=== PATIENT | male | born 1985 | race Caucasian/White ===

== ENCOUNTER 2024-09-11 20:28 | Emergency (ER) | payer OTHER, SELFPAY ==
[2024-09-11 20:59] VITALS: BP 127/77; PULSE 81; RESP 18; TEMP 36.6; O2SAT 98; BMI 24.3
--- NOTE | 2024-09-11 21:10 | DI.RAD.S_ITS ---
PROCEDURE: XR ANKLE LT MIN 3V INDICATIONS: deformity, fell TECHNIQUE: 3 views of the ankle were acquired. COMPARISON: None. FINDINGS: Bones: No acute fractures or dislocations. Ankle mortise is normally aligned. No suspicious bony lesions. Soft tissues: No tibiotalar joint effusion. Achilles tendon appears normal. Lateral malleolar soft tissue edema. IMPRESSION: Lateral malleolar soft tissue swelling without underlying fracture or dislocation. If there is persistent clinical concern for occult fracture given adequate mechanism of injury, consider repeat imaging in 10-14 days. Dictated by: Jf Juarez M.D. on 09/11/2024 at 23:23 Approved by: Jf Juarez M.D. on 09/11/2024 at 23:24
[2024-09-12 00:48] VITALS: PULSE 72
[2024-09-12 01:02] VITALS: BP 112/70; PULSE 80; RESP 16; O2SAT 98
--- NOTE | 2024-09-12 01:26 | ED.LOWEXIN ---
HPI - Extremity Injury (Lower) General Chief Complaint: Extremity Injury, Lower Stated Complaint: Fall; L Leg Injury Time Seen by Provider: 09/12/24 01:01 Source: patient Mode of arrival: Wheelchair History of Present Illness HPI Narrative: 39-year-old gentleman running, stepped into a hole with his left foot and heard a pop. Tingling to the foot. Unable to bear weight. Neurovascularly intact. Related Data Allergies Allergy/AdvReac Type Severity Reaction Status Date / Time cough suppressant Allergy Severe Anxiety Uncoded 09/11/24 21:02 Patient History Social History Smoking Status: Never smoker Smoking Status: Never smoker Exam Initial Vital Signs Initial Vital Signs: Vital Signs Temperature 97.9 F 09/11/24 20:59 Pulse Rate 81 09/11/24 20:59 Respiratory Rate 18 09/11/24 20:59 Blood Pressure 127/77 09/11/24 20:59 Pulse Oximetry 98 09/11/24 20:59 Oxygen Delivery Method Room Air 09/11/24 20:59 General: Alert appropriate in no acute distress Respiratory: Able to speak in full sentences, no obvious respiratory distress Skin: No obvious rashes, warm and dry Neurologic: Grossly intact no obvious asymmetries or abnormalities Psych: appropriate insight and affect, cooperative Extremity: Left ankle swelling laterally with no obvious hematoma. Neurovascularly intact. No injury to the knee Course Orders Ordered: ED Orders 09/11/24 21:10 XR ankle LT min 3V Stat Vital Signs Vital signs: Vital Signs - 8 hr 09/11/24 20:59 09/12/24 00:48 09/12/24 01:02 Temperature 97.9 F Pulse Rate 81 80 Pulse Rate [Left Dorsalis Pedis] 72 Respiratory Rate 18 16 Blood Pressure 127/77 112/70 Pulse Oximetry 98 98 Oxygen Delivery Method Room Air Room Air MDM - Extremity Injury (Lower) MDM Narrative Medical decision making narrative: 39-year-old gentleman running across a lawn left foot fell into a divot/whole he had an inversion ankle injury did hear a pop. There was quite a bit of swelling laterally and some tenderness over the medial malleoli as well. There was no tenderness through the midfoot or with the left knee. X-rays show no acute fractures. He is placed in an ankle air stirrup splint for comfort and stability. He is neurovascularly intact pre and post placement. He is given crutches along with crutch training. He states at this point pain is minimal he can use ibuprofen at home to declines any additional pain medication. No indication for further workup or hospitalization and he is discharged Discharge Plan Departure Patient Disposition: Home Clinical Impression: Ankle sprain and strain Instructions: DI for Ankle Sprain Activity Restrictions/Additional Instructions: Thank you for coming in today The x-rays do not show any fractures to your ankle. The tenderness and swelling clearly suggest a significant sprain. Use the ankle air splint as long as it is comfortable. Use the crutches as long as you are unable to bear weight. If you are still having significant pain and swelling after a week I would recommend primary care follow up. You may benefit from physical therapy Using 400 mg of ibuprofen (2 [id number] pills) and 1 Tylenol every 6 hours can be very helpful in controlling pain. If you find that you are getting worse or develop any new symptoms, please feel free to return to the emergency department for further evaluation. Stand Alone Forms: Patient Portal/API
[2024-09-12 01:54] VITALS: BP 105/74; PULSE 82; RESP 16; O2SAT 97
== END 2024-09-12 01:54 | disposition home or self-care (01) ==
PROVIDERS: Emergency Provider Emergency Medicine
DX: S93.402A Sprain of unspecified ligament of left ankle, initial encounter (principal); X50.1XXA Overexertion from prolonged static or awkward postures, initial encounter; Y93.02 Activity, running
CPT/HCPCS: 29515; 73610; 99282; 99283